=== PATIENT | male | born 1995 | race African-American/Black ===

== ENCOUNTER 2018-05-06 14:10 | Emergency (ER) | payer OTHER ==
[~2018-05-06] VITALS: Ht 175.3 cm; Wt 57.8 kg
[2018-05-06 14:40] VITALS: BP 128/77
--- NOTE | 2018-05-06 14:47 | NUR ---
AFTER PROVIDING URINE SAMPLE PT AMBULATES TO BED 8
--- NOTE | 2018-05-06 15:00 | NUR ---
AAO X4 23 YR MALE BIB SELF WITH C/O INTERMITTENT NON RADIATING EPIGASTRIC PAIN AND DIARRHEA SINCE FEBRUARY WITH NAUSEA AGRAVATED BY DAIRY PRODUCTS . VSS; PATIENT POSITIONED FOR COMFORT; HOB ELEVATED; BEDRAILS UP X1; BED DOWN. ER MD MADE AWARE OF PT STATUS.
[2018-05-06] MEDS ORDERED: NACL 0.9% 1,000 ML IV ONE (15:23)
[2018-05-06] MEDS ORDERED: DEXAMETHASONE 10 MG/ML VIAL IVP ONE (15:30)
[2018-05-06] MEDS ORDERED: diphenhydrAMINE 50 MG/ML VIAL IVP ONE (15:30)
[2018-05-06] MEDS ORDERED: FAMOTIDINE 20 MG/2 ML VIAL IVP ONE (15:30)
[2018-05-06 15:42] LABS: APPEARANCE,URINE CLEAR (CLEAR); BILIRUBIN,URINE NEGATIVE (NEGATIVE); BLOOD, URINE NEGATIVE (NEGATIVE); COLOR,URINE YELLOW (YELLOW); LEUKOCYTE ESTERASE ,URINE NEGATIVE (NEGATIVE); NITRITE, URINE NEGATIVE (NEGATIVE); UGLUCOSE NEGATIVE (NEGATIVE)
[2018-05-06] MEDS: NACL 0.9% 1,000 ML IV SCH ×2 (15:50→16:06)
[2018-05-06 15:51] LABS: ANION GAP 11.1 (8-16); CARBON DIOXIDE 30.5 mmol/L (21-32); POTASSIUM 3.6 mmol/L (3.5-5.1)
[2018-05-06 15:57] LABS: TOTAL BILIRUBIN 1.4 mg/dL (0.0-1.0)
[2018-05-06 16:05] LABS: BASOPHILS % (AUTO) 0.4 % (0.0-2.0); EOSINOPHILS # (AUTO) 0.1 K/uL (0-0.4); HEMATOCRIT 41.8 % (36-52); HEMOGLOBIN 13.7 g/dL (12.0-18.0); LYMPHOCYTES # (AUTO) 1.3 K/uL (2.0-11.5); LYMPHOCYTES % (AUTO) 41.4 % (20.5-51.1); MEAN CORPUSCULAR HEMOGLOBIN 29 pg (27-31); MEAN CORPUSCULAR HGB CONC 33 g/dL (33-37); MEAN CORPUSCULAR VOLUME 89.2 fL (80-94); MONOCYTES # (AUTO) 0.4 K/uL (0.8-1.0); MONOCYTES % (AUTO) 11.6 % (1.7-9.3); NEUTROPHILS # (AUTO) 1.4 K/uL (1.8-7.7); NEUTROPHILS % (AUTO) 43.6 % (42.2-75.2); PLATELET COUNT (AUTO) 294 K/uL (140-450); RED BLOOD CELL COUNT(AUTO) 4.69 MIL/uL (4.20-6.10); RED CELL DISTRIBUTION WIDTH 13.2 % (11.6-13.7); WHITE BLOOD COUNT (AUTO) 3.2 K/uL (4.8-10.8)
[2018-05-06 18:05] VITALS: BP 119/82
--- NOTE | 2018-05-06 18:05 | NUR ---
Patient discharged with v/s stable. Written and verbal after care instructions given and explained. Patient alert, oriented and verbalized understanding of instructions. Ambulatory with steady gait. All questions addressed prior to discharge. ID band removed. Patient advised to follow up with PMD. Rx of FAMOTIDINE 40MG AND PROTONIX 40MG given. Patient educated on indication of medication including possible reaction and side effects. Opportunity to ask questions provided and answered.
== END 2018-05-06 18:05 | disposition home or self-care (01) ==
LOC: MED 14:10
DX: T78.1XXA Other adverse food reactions, not elsewhere classified, initial encounter (principal); X58.XXXA Exposure to other specified factors, initial encounter; R10.13 Epigastric pain; R19.7 Diarrhea, unspecified
CPT/HCPCS: 36415; 80053; 81003; 82150; 83690; 85025; 96361; 96374; 96375; 99283; J1100; J1200; J3490; J7030